=== PATIENT | male | born 1965 | race Caucasian/White ===

== ENCOUNTER 2017-06-17 20:01 | Emergency (ER) | payer OTHER ==
[~2017-06-17] VITALS: Ht 162.6 cm; Wt 64.4 kg
[2017-06-17 21:33] LABS: BASOPHIL % 0.7 % (0-2); PLATELET COUNT 313 x10^3mcL (130-400); RED CELL DISTRIBUTION WIDTH 13.9 % (11.5-14.5)
[2017-06-17 21:37] LABS: CALCIUM 9.1 mg/dL (8.5-10.1); CHLORIDE SERUM 103 mmol/L (98-107); CREATININE SERUM 0.9 mg/dL (0.7-1.3); GFR1 > 60 mL/min; GLUCOSE SERUM 96 mg/dL (74-106); POTASSIUM SERUM 3.9 mmol/L (3.5-5.1); SODIUM SERUM 141 mmol/L (136-145)
[2017-06-17 21:43] LABS: ALKALINE PHOSPHATASE 87 U/L (46-116); ALT/SGPT 16 U/L (16-63); AST/SGOT 12 U/L (15-37); BILIRUBIN TOTAL 0.2 mg/dL (0.20-1.00); LIPASE 127 IU/L (73-393); TOTAL PROTEIN, SERUM 6.2 g/dL (6.4-8.2)
[2017-06-17 21:44] LABS: ALBUMIN 2.8 g/dL (3.4-5.0)
[2017-06-17 22:20] LABS: UA SPECIFIC GRAVITY 1.015 (1.005-1.035); microscopic required? YES; urine erythrocyte NEGATIVE (NEGATIVE)
[2017-06-17 23:00] VITALS: BP 136/62
== END 2017-06-17 23:00 | disposition home or self-care (01) ==
LOC: ED 20:01 → EDSEX 20:01 → ED 23:00
PROVIDERS: Emergency Medicine
DX: R10.9 Unspecified abdominal pain (principal); R19.7 Diarrhea, unspecified
CPT/HCPCS: 36415; J7030

== ENCOUNTER 2017-06-22 14:49 | Emergency (ER) | payer OTHER ==
[~2017-06-22] VITALS: Ht 165.1 cm; Wt 68.0 kg
[2017-06-22 16:50] VITALS: BP 140/68
[2017-06-22 17:41] LABS: UA SPECIFIC GRAVITY 1.015 (1.005-1.035); microscopic required? YES; urine erythrocyte NEGATIVE (NEGATIVE)
== END 2017-06-22 16:50 | disposition home or self-care (01) ==
LOC: ED 14:49
PROVIDERS: Emergency Medicine
DX: N39.0 Urinary tract infection, site not specified (principal)

== ENCOUNTER 2019-03-22 08:31 | Emergency (ER) | payer OTHER ==
[~2019-03-22] VITALS: Ht 165.1 cm; Wt 103.0 kg
[2019-03-22 08:40] VITALS: Ht 165.1 cm; Wt 103.0 kg
[2019-03-22 09:53] VITALS: BP 135/93
== END 2019-03-22 09:53 | disposition home or self-care (01) ==
LOC: ED 08:31
DX: G89.29 Other chronic pain (principal); M25.562 Pain in left knee

== ENCOUNTER 2019-08-20 10:05 | Emergency (ER) | payer OTHER ==
[~2019-08-20] VITALS: Ht 165.1 cm; Wt 108.4 kg
[2019-08-20 10:10] VITALS: BP 172/112; Ht 165.1 cm; Wt 108.4 kg
== END 2019-08-20 12:16 | disposition home or self-care (01) ==
LOC: ED 10:05
DX: M54.42 Lumbago with sciatica, left side (principal)
CPT/HCPCS: J1885